=== PATIENT | male | born 1980 | race Caucasian/White ===

== ENCOUNTER 2023-06-06 03:56 | Emergency (ER) | payer SELFPAY ==
[2023-06-06] MEDS ORDERED: Lidocaine 1% w/Epinephrine 1:100K 20 ML VIAL ONE (04:27)
[2023-06-06] MEDS ORDERED: Boostrix 0.5 ML (Tdap) VIAL (>/=7 yrs of age) ONE (05:24)
[2023-06-06] MEDS ORDERED: Bacitracin 1 PK ONE (05:38)
== END 2023-06-06 05:47 | disposition home or self-care (01) ==
LOC: ERS 03:56
DX: S51.811A Laceration without foreign body of right forearm, initial encounter (principal); F17.210 Nicotine dependence, cigarettes, uncomplicated; W26.8XXA Contact with other sharp object(s), not elsewhere classified, initial encounter
CPT/HCPCS: 12032; 90471; 90715